=== PATIENT | female | born 1985 | race Caucasian/White ===

== ENCOUNTER 2016-09-25 23:29 | Emergency (ER) | payer OTHER ==
[~2016-09-25] VITALS: Ht 167.6 cm; Wt 83.9 kg
[~2016-09-25 23:29] MED LIST: APAP/BUTALBITAL1 TA1 PO; OSTEO BI-FLEX1 TAB PO; PHENERGAN 25MG.25 M1 PO; PRISTIQ100 MG PO; SUMATRIPTAN SU100 MG PO; ZOFRAN ODT8 MG PO
[2016-09-25 23:53] LABS: HEMOGLOBIN 15.4 g/dL (12.2-16.2); LYMPH # 2.8 K/mm3 (0.7-4.5)
--- NOTE | 2016-09-26 | Emergency Room Report ---
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 N Clinical Suspician of Infection? N Mental Status: 1 - Regular (Normal Baseline) Sepsis Risk:Low Sepsis Risk Have you (or family members/close friends) recently traveled outside the [place]? N If Yes, where/when: Have you had exposure to infectious disease within the past month? N TB? Other? Specify: Source patient, RN notes reviewed, old records Exam Limitations no limitations Comment pt has lower suprapubic pain worse with urination- she has no gross hematuria but has nausea and dec po intake with no fever Cardiac Chest Pain Chest pain indicative of cardiac No Timing/Duration this evening Severity moderate ALLERGIES Coded Allergies: No Known Allergies (10/23/15) Home Medications Active Scripts Promethazine Hydrochloride (Phenergan 25MG Tab) 25 MG PO Q6HP PRN N/V #10 TAB Prov: 01/22/15 Reported Medications Chondroitin Sulfate/Glucosam (Osteo Bi-Flex) 1 TAB PO BID History Medical History General CAD? No Angina: No [place]: No Hypertension? No Hyperlipidemia? No CHF? No COPD? No Asthma? No Anemia? No Hernia? No Thyroid Problems? No Hypothyroidism? No CVA? No Seizures? No Diabetes? No End Stage Renal Disease? No UTI? No Stones? No GB Disease: Yes Nephritic Syndrome? No Asplenia? No Hepatitis? No Sickle Cell Disease? No Arthritis? No Cataracts? No Glaucoma? No MRSA? No TB? No Cancer? 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 Respiratory denies cough, denies shortness of breath, denies wheezing Cardiovascular denies chest pain, denies palpitations, denies syncope Gastrointestinal see HPI, denies abdominal pain, nausea, denies vomiting Genitourinary see HPI. denies: dysuria, frequency, hesitancy, hematuria. Musculoskeletal denies back pain, denies joint pain, denies joint swelling, denies neck pain Skin denies rash Psychiatric/Neurological denies headache, denies seizure Physical Exam Vital Signs Vital Signs Date Time Temp Pulse Resp B/P Pulse O2 O2 Flow FiO2 Ox Delivery Rate 09/25 2337 98.1 91 18 157/97 97 - WBC >12,000 or <4,000 or 10% bands? 2 or more SIRS Criteria Met? B/P:157/97 MAP:117 Creatinine >2.0? UA output<0.5ml/kg/hr for 2 hrs? Platelet count >100,000? Lactate >2.0mmol/1? INR >1.2 or PTT > than 60 sec? Evidence of Organ Dysfunction? Provider documented clinical suspician of infection? N Sepsis Criteria Count: 1 Sepsis Risk: Low Sepsis Risk General Appearance no apparent distress Eye Exam - bilateral eye PERRL, bilateral eye EOMI Ear, Nose, Throat normal ENT inspection Neck supple Respiratory Status No: respiratory distress. 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 No Results/Orders Laboratory Tests 09/26/16 0030: Urine Color YELLOW, Urine Appearance CLEAR, Urine pH 6.0, Ur Specific [place] 1.020, Urine Protein NEGATIVE, Urine Ketones NEGATIVE, Urine Blood NEGATIVE, Urine Nitrate NEGATIVE, Urine Bilirubin NEGATIVE, Urine Urobilinogen 4.0, Ur Leukocyte Esterase NEGATIVE, Urine WBC OCC, Ur Squamous Epith Cells 5-10, Urine Renal Cells OCC, Amorphous Sediment TRACE, Urine Mucus 4+, Urine Glucose NEGATIVE 09/25/16 2345: Sodium 143, Potassium 3.6, Chloride 106, Carbon Dioxide 30, BUN 9, Creatinine 0.9, Estimated Creat Clear 118, Estimated GFR (MDRD) 72, Glucose 89, Calcium 8.2 L, Total Bilirubin 0.4, AST 30, ALT 52, Alkaline Phosphatase 71, Creatine Kinase 223 H, Total Protein 6.7, Albumin 3.3 L, Globulin 3.4 H, Albumin/ Globulin Ratio 1.0 L, WBC 4.7 L, RBC 5.19, Hgb 15.4, Hct 48.5 H, MCV 93.4, RDW 13.0, Plt Count 264, MPV 5.7 L, Gran % 32.4 L, Gran # 1.5 L, Total Counted 100, Lymphocytes % 60.0 H, Monocytes % 4.7, Eosinophils % 2.3, Basophils % 0.6, Neutrophils 30 L, Band Neutrophils 2, Lymphocytes (Manual) 66 H, Lymphocytes # 2.8, Monocytes (Manual) 2, Monocytes # 0.2, Eosinophils # 0.1, Basophils # 0.0, RBC/WBC/PLT Morphology NORMAL, Platelet Estimate NORMAL, PUBS MCHC 31.7 L, MCH 29.7 Current Medication Orders Sig/Maxim Start time Last Medication Dose Route Stop Time Status Admin Multi-Ingredient GI 60 ML ONCE ONE 09/26 44 DC 09/26 Drug PO 09/26 0046 0044 Sodium Chloride 1,000 ML .Q1H1M 09/26 0045 AC 09/26 IV 09/26 0145 0045 Sodium Chloride 10 ML PRN PRN 09/26 0045 AC IV 09/27 0042 Multi-Ingredient GI 0 .STK-MED ONE 09/26 0044 DC Drug PO Sodium Chloride 1,000 ML .STK-MED ONE 09/26 0043 DC IV Sodium Chloride 1,000 ML .STK-MED ONE 09/25 2348 DC IV Sodium Chloride 1,000 ML .Q1H1M 09/25 234 DC 09/25 IV 09/26 0045 2350 Sodium Chloride 10 ML PRN PRN 09/25 2344 AC IV 09/26 233 Sodium Chloride 10 ML PRN PRN 09/25 2344 AC IV 09/26 234 Orders Procedure Date/time Status IV SALINE LOCK 09/25 2345 Active DIFFERENTIAL-WBC 09/25 2344 Complete URINALYSIS/COMPLETE 09/26 2335 Complete CPK 09/26 2335 Complete COMPLETE METABOLIC PANEL 09/26 2335 Complete CBC WITH AUTO DIFF 09/26 2335 Complete Departure Departure Time of Disposition 101 Disposition DC Home or Self Care(routine) Clinical Impression Primary Impression: Suprapubic pain, acute Condition STABLE Patient Instructions DI for Dysuria -- Adult Additional Instructions use pyridium and see pcp or urology for follow up Discharge Counseling Counseled pt/family regarding diagnosis, test results, follow up needs [place] [address]
[2016-09-26 00:04] LABS: NEUTROPHILS 30 % (42-76)
[2016-09-26 00:44] LABS: URINE BILIRUBIN - DIPSTICK NEGATIVE (NEG); URINE BLOOD NEGATIVE (NEG)
[2016-09-26 00:49] LABS: URINE RENAL CELLS OCC #/HPF
[2016-09-26 01:26] VITALS: BP 157/97
== END 2016-09-26 01:39 | disposition home or self-care (01) ==
LOC: ER 23:29
PROVIDERS: Emergency Medicine
DX: R10.2 Pelvic and perineal pain (principal)